=== PATIENT | male | born 1975 | race Caucasian/White ===

== ENCOUNTER 2024-03-11 16:17 | Emergency (ER) | payer SELFPAY ==
[~2024-03-11] VITALS: Ht 177.8 cm; Wt 83.0 kg
[2024-03-11 16:19] VITALS: O2SAT 98
[2024-03-11 16:35] LABS: BASOPHILS % 0.7 % (0.0-2.0); HEMATOCRIT. 43.8 % (42.0-52.0); HEMOGLOBIN. 15.1 g/dL (14.0-18.0); LYMPHOCYTES % 27.4 % (20.0-50.0); MEAN CORPUSCULAR HEMOGLOBIN 29.6 pg (28.0-32.0); MEAN CORPUSCULAR HGB CONC 34.4 g/dL (31.0-37.0); MEAN CORPUSCULAR VOLUME 85.9 fL (80.0-94.0); MEAN PLATELET VOLUME 8.4 fl (7.4-10.4); MONOCYTES % 5.9 % (2.0-8.0); PLATELET 266 x1000/uL (130-400); RED BLOOD CELL COUNT 5.09 mill/uL (4.7-6.1); RED CELL DISTRIBUTION WIDTH 13.3 % (11.6-14.6); WHITE BLOOD COUNT 8.7 x1000/uL (4.5-11.0)
[2024-03-11 16:41] LABS: CARBON DIOXIDE 26 mEq/L (21-32); CHLORIDE 104 mEq/L (98-107); POTASSIUM 4.2 mEq/L (3.5-5.1); SODIUM 138 mEq/L (136-145)
[2024-03-11 16:42] LABS: CALCIUM 8.9 mg/dL (8.7-10.4)
[2024-03-11 16:47] LABS: GLUCOSE 109 mg/dL (70-105); UREA NITROGEN BLOOD 11 mg/dL (9-23)
[2024-03-11 16:57] LABS: TROPONIN I HIGH SENSITIVITY < 4 ng/L (3.0-53)
[2024-03-11] MEDS: SODIUM CHLORIDE 0.9% 1,000 ML IV ONE (18:51)
[2024-03-11] MEDS: ONDANSETRON HCL 4MG/2ML INJ IV ONE (18:52)
[2024-03-11 19:10] VITALS: BP 132/82; PULSE 61; RESP 18; TEMP 98.7
== END 2024-03-11 23:06 | disposition left against medical advice (07) ==
LOC: ER 16:17 → EDBEDREQ 20:47 → EDBEDREQTM 20:47 → ER 23:06
DX: R42 Dizziness and giddiness (principal); F19.90 Other psychoactive substance use, unspecified, uncomplicated; Z88.0 Allergy status to penicillin
CPT/HCPCS: 80048; 85025; 84484; 36415; 71045; 70450; 93005; 99285; J7030; Z7610